=== PATIENT | female | born 1985 | race Caucasian/White ===

== ENCOUNTER 2016-03-28 13:44 | Outpatient (RCR) | payer BC ==
[~2016-03-28 13:44] MED LIST: ALDOMET 250MG250 MG PO; IBREN600 MG PO; SENOKOT S 50 MG1 TAB PO
== END 2016-06-26 | disposition home or self-care (01) ==
LOC: MKS.ESL.PT
DX: M54.5 Low back pain (principal); M54.16 Radiculopathy, lumbar region

== ENCOUNTER → 2016-06-22 | Outpatient (REF) ==
[~2016-06-22] MED LIST changes: +DULCOLAX STOOL100 MG PO; +IBU800 M1 PO; +NORMODYNE100 MG PO; +PERCOCET 325 MG1 TA2 PO; +PRENATAL PO
== END ==
LOC: WSOH 11:15
DX: Z02.89 Encounter for other administrative examinations (principal)

== ENCOUNTER 2016-10-02 03:24 | Inpatient (IN) | payer BC ==
[~2016-10-02] VITALS: Ht 172.7 cm; Wt 103.2 kg
[2016-10-02] VITALS (19 sets, daily range): BP systolic 123–165; BP diastolic 58–93; PULSE 59–118; TEMP 97.5–98.4
[~2016-10-02 03:24] MED LIST changes: -DULCOLAX STOOL100 MG PO; -IBU800 M1 PO; -NORMODYNE100 MG PO; -PERCOCET 325 MG1 TA2 PO; -PRENATAL PO
[2016-10-02 05:47] LABS: BASO % 0.3 % (0.0-2.0); EOS % 0.3 % (0-4.0); GRAN # 9.4 (1.4-6.5); GRAN % 75.3 % (42.2-75.2); HEMATOCRIT 35.3 % (37.0-47.0); HEMOGLOBIN 11.9 g/dl (12.5-16.0); LYMPH # 1.8 (1.2-3.4); LYMPH % 14.3 % (20.0-51.0); MEAN CELL VOLUME 80 fl (80.0-100.0); MEAN CORPUSCULAR HEMOGLOBIN 27 pg (27.0-31.0); MEAN CORPUSCULAR HGB CONC 34 g/dl (33.0-37.0); MEAN PLATELET VOLUME 11.9 fl (7.4-10.4); MONO # 1.1 (0.1-0.6); MONO % 8.5 % (1.7-9.3); PLATELET COUNT 180 K/mm3 (130-400); RED BLOOD COUNT 4.39 M/mm3 (4.10-5.30); REDCELL DISTRIBUTION WIDTH-CV 14.2 % (11.5-14.5); WHITE BLOOD COUNT 12.5 K/mm3 (4.8-10.8)
[2016-10-02] MEDS ORDERED: NORMODYNE100 MG PO (07:00)
[2016-10-02] MEDS ORDERED: PRENATAL PO (07:01)
[2016-10-02 07:18] LABS: ADJUSTED CALCIUM 9.3 mg/dL (8.4-10.2); ALBUMIN 3.8 gm/dL (3.5-5.0); BILIRUBIN,TOTAL 0.6 mg/dL (0.0-1.0); CALCIUM 9.1 mg/dL (8.4-10.2); CREATININE, serum 0.54 mg/dL (0.52-1.25); POTASSIUM 3.9 mmol/L (3.4-5.0); TOTAL PROTEIN 7.1 gm/dL (6.4-8.2)
[2016-10-03] VITALS: BP 132/72; PULSE 85; TEMP 97.7
[2016-10-03 08:45] VITALS: BP 141/71; PULSE 90; TEMP 98.5
[2016-10-03] MEDS ORDERED: IBU800 M1 PO (12:13)
[2016-10-03] MEDS ORDERED: PERCOCET 325 MG1 TA2 PO (12:13)
[2016-10-03 16:00] VITALS: BP 141/78; PULSE 89; TEMP 97.9
[2016-10-03 21:20] VITALS: BP 147/76; PULSE 80; TEMP 98.9
[2016-10-04 08:25] VITALS: BP 153/74; PULSE 71; TEMP 98.1
[2016-10-04] MEDS ORDERED: NORMODYNE100 MG PO (08:58)
== END 2016-10-04 12:20 | disposition home or self-care (01) | DRG 774 ==
LOC: LDRO 03:24 → LDR 03:26 → OB 03:26
PROVIDERS: Student in an Organized Health Care Education/Training Program
PROC: 10E0XZZ Delivery of Products of Conception, External Approach (ICD-10-PCS; principal; 2016-10-02)
PROC: 0TQD0ZZ Repair Urethra, Open Approach (ICD-10-PCS; 2016-10-02)
DX: O10.913 Unspecified pre-existing hypertension complicating pregnancy, third trimester (principal); O36.0130 Maternal care for anti-D [Rh] antibodies, third trimester, not applicable or unspecified; O71.5 Other obstetric injury to pelvic organs; O99.824 Streptococcus B carrier state complicating childbirth; Z3A.38 38 weeks gestation of pregnancy; Z37.0 Single live birth
CPT/HCPCS: J2540; J2590; J2795; J7120

== ENCOUNTER 2016-10-13 10:47 | Emergency (ER) | payer BC ==
[~2016-10-13] VITALS: Ht 172.7 cm; Wt 102.3 kg
[~2016-10-13 10:47] MED LIST changes: +IBU800 M1 PO; +NORMODYNE100 MG PO; +PERCOCET 325 MG1 TA2 PO; +PRENATAL PO
[2016-10-13 10:49] VITALS: TEMP 99.1
[2016-10-13] MEDS ORDERED: DULCOLAX STOOL100 MG PO (10:53)
[2016-10-13 12:14] LABS: BASO # 0.1 (0.0-0.2); BASO % 0.4 % (0.0-2.0); EOS # 0.2 (0.0-0.7); LYMPH # 1.6 (1.2-3.4); LYMPH % 10.2 % (20.0-51.0); MEAN CELL VOLUME 84 fl (80.0-100.0); MEAN CORPUSCULAR HGB CONC 32 g/dl (33.0-37.0); MEAN PLATELET VOLUME 10.4 fl (7.4-10.4); MONO # 0.8 (0.1-0.6); MONO % 4.8 % (1.7-9.3); PLATELET COUNT 303 K/mm3 (130-400); RED BLOOD COUNT 4.11 M/mm3 (4.10-5.30); REDCELL DISTRIBUTION WIDTH-CV 13.9 % (11.5-14.5); WHITE BLOOD COUNT 15.7 K/mm3 (4.8-10.8)
[2016-10-13 12:23] LABS: HEMATOCRIT 34.5 % (37.0-47.0); MEAN CORPUSCULAR HEMOGLOBIN 27 pg (27.0-31.0)
[2016-10-13 12:45] LABS: ADJUSTED CALCIUM 8.9 mg/dL (8.4-10.2); BILIRUBIN,TOTAL 0.6 mg/dL (0.0-1.0); CALCIUM 8.9 mg/dL (8.4-10.2); CREATININE, serum 0.73 mg/dL (0.52-1.25); TOTAL PROTEIN 7.1 gm/dL (6.4-8.2)
[2016-10-13 13:12] LABS: PH 7 (5-8); SQUAMOUS EPITHELIAL 0-2 /hpf; URINE APPEARANCE Clear; URINE BACTERIA Rare /hpf; URINE BILIRUBIN Negative (NEGATIVE); URINE BLOOD 1+ (NEGATIVE); URINE COLOR Yellow; URINE GLUCOSE Negative (NEGATIVE); URINE KETONE Negative (NEGATIVE); URINE RBC 0-2 /hpf; URINE UROBILINOGEN Negative (NEGATIVE); URINE WBC 0-2 /hpf
[2016-10-13 13:48] VITALS: BP 123/72; PULSE 77
== END 2016-10-13 13:50 | disposition home or self-care (01) ==
LOC: COL.ER 10:47
PROVIDERS: Emergency Medicine
DX: O99.89 Other specified diseases and conditions complicating pregnancy, childbirth and the puerperium (principal); O16.5 Unspecified maternal hypertension, complicating the puerperium; E86.0 Dehydration; R55 Syncope and collapse; R79.89 Other specified abnormal findings of blood chemistry
CPT/HCPCS: J7030; Q9967

== ENCOUNTER → 2020-11-12 | Outpatient (CLI) | payer OTHER ==
[~2020-11-12] MED LIST changes: +DULCOLAX STOOL100 MG PO
== END ==
LOC: MC.RAD 12:53
DX: N63.10 Unspecified lump in the right breast, unspecified quadrant (principal)